=== PATIENT | female | born 1965 | race African-American/Black ===

== ENCOUNTER → 2016-03-01 | Outpatient (CLI) | payer BC, OTHER ==
[~2016-03-01] VITALS: Ht 157.5 cm; Wt 73.4 kg
[~2016-03-01] MED LIST: DEPO-PROVER150 MG/M1 IM; NEURONTIN 300300 M1 PO; UNICOMPLEX M TA1 TA1 PO
--- NOTE | ~2016-03-01 | HPC ---
[facility] [place] [place] [address] PAIN MANAGEMENT CONSULTATION Name: PATRICIA FRIEDMAN VERO Room #: REG DARIO Jelly#: [id number] Admission: 03/01/16 Attend Phys: Paul Yoo DO Discharge: Date of : 61 Report #: [id number] THIS REPORT FOR: //name// CC: Paul MONZON DC DATE OF SERVICE: 03/01/2016 REFERRING PHYSICIAN: Jaime Monzon DC CHIEF COMPLAINT: Neck pain, left upper extremity pain and paresthesias. HISTORY OF PRESENT ILLNESS: As you know, the patient is a very pleasant 50-year-old female referred to our service by her a chiropractor, Dr. Jaime Monzon, for evaluation for cervical radiculopathy. The patient has been undergoing treatment for chiropractic manipulation of the cervical spine, but unfortunately the patient's symptoms did not improve significantly. She was then sent for MRI of the cervical spine for concern of cervical radiculopathy affecting the C6-C7 dermatome. After the MRI was obtained, the patient was referred to our clinic to discuss treatment options. The patient indicates pain has been present for about 5-7 days. She states her pain is constant in nature, describes the pain as aching, throbbing, tender, numbness and tingling. She places current pain score at 8/10, daily average at 10/10. Current pain is leveled at 8-10/10. She states that moving, lying down for any length of time, using her left upper extremity exacerbate symptoms. She improves with rest, relaxation. She has been referred to our service for discussions of suspected cervical radiculopathy. PAST MEDICAL HISTORY: None. PAST SURGICAL HISTORY: None. SOCIAL HISTORY: The patient denies tobacco, alcohol or IV illicit drug use. 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 She is working, not receiving workmen's compensation nor is she trying to obtain disability benefits. She is unaccompanied at today's visit. REVIEW OF SYSTEMS: Positive only for neck pain, left upper extremity pain and paresthesias. All other review of systems negative per 12-point review of systems other than those listed in history of present illness. Pain impact score 20/70 indicating mild to moderate interference of daily activities secondary to pain. ALLERGIES: No known drug allergies. [address] [address] PAIN MANAGEMENT CONSULTATION Name: PATRICIA FRIEDMAN VERO Room #: REG DARIO Reaves#: [id number] Admission: 03/01/16 Attend Phys: Paul Yoo DO Discharge: Date of : 61 Report #: [id number] CURRENT MEDICATIONS: Multivitamin 1 tab per day and Depo-Provera every 3 months. IMAGING: MRI of cervical spine obtained on 03/01/2016 shows C2-C3, unremarkable. C3-C4, mild degenerative changes, posterior disk bulge indenting anterior thecal sac, mildly narrowing the canal, neural foramen are patent. C4-C5 posterior disk bulge intending at the anterior thecal sac, mild to moderate narrowing in the central canal. AP diameter is 8 mm, neural foramen are patent. C5-C6, moderate posterior disk bulge, facet arthropathy, indentation at the anterior thecal sac, moderate central canal stenosis, AP dimension of the central canal 7 mm, mild, narrowing of the neural foramen. C6-C7, diffuse asymmetric bulge protrusion measuring 3 mm in the left neural foramen, resulting in severe stenosis of the left neural foramen, mild to moderate central canal stenosis, right neural foraminal areas are patent. PHYSICAL EXAMINATION: VITAL SIGNS: Blood pressure 154/91, pulse 98, respiratory rate 16, unlabored. The patient is 100% on room air. Height 5 feet 2 inch tall, weight 161.8 pounds, BMI calculated 29.6. GENERAL: Well-developed, well-nourished, well-hydrated 50-year-old female appearing stated age, placing current pain score at around 8-10/10. HEENT: Normocephalic, atraumatic. Pupils equal, round, reactive to light. Extraocular muscles are intact. Sclerae nonicteric without injection. NEUROLOGIC: Cranial nerves 2-12 grossly intact. Speech fluent. The patient deemed an excellent historian. LUNGS: Clear. No wheeze, rhonchi or rales. CARDIOVASCULAR: Regular. No appreciable gallop or rub. ABDOMEN: Soft, nontender, nondistended, normal active bowel sounds. EXTREMITIES: Show no clubbing, no cyanosis, no edema. MUSCULOSKELETAL: Upper extremity strength appears equal and symmetrical 5/5. There is some giveaway strength noted with biceps flexion and triceps extension due to pain generation on the left when compared to the right. The patient does have decreased tactile sensation along the C7 dermatome left, normal right. Spurling's test positive left, negative right. Traction test is positive. Valsalva test is positive left, negative right. Cervical provocation testing including extension, rotation, lateral flexion to the left causes intensification of neck and upper trapezial pain. Muscle bulk and tone equal and symmetrical in upper extremities. Deep tendon reflexes 2+/4 biceps, brachioradialis and triceps. ASSESSMENT: 1. Cervical radiculopathy. 2. Displacement of cervical intravertebral disk with radiculopathy. 3. Cervical spondylosis with radiculopathy. [facility] [address] [place] [address] PAIN MANAGEMENT CONSULTATION Name: PATRICIA FRIEDMAN VERO Room #: REG DARIO Reaves#: [id number] Admission: 03/01/16 Attend Phys: Paul Yoo DO Discharge: Date of : 61 Report #: [id number] PLAN: 1. Based on today's physical exam, history the patient has provided, the description the patient uses in regards to pain as well as the distribution of the pain presenting today, the likely source of the patient's pain is a cervical radiculopathy. The findings on the cervical spine do correlate with the findings of physical exam. Specifically, the neural foraminal stenosis at C6-C7 correlating to a C7 dermatomal distribution problem. The patient and I discussed at length the MRI findings. We took 20 minutes of time to evaluate the MRI. We used mottling and recent reports to display any changes that the patient has. After the discussion, the patient fully understood her cervical radicular symptoms and the cause of her pain. We then discussed with the patient the options for treatment. The following was discussed. 2. We discussed with the patient treatment options would include physical therapy, traction of the cervical spine, possible continued use of mild myofascial pain release treatments and chiropractic manipulation. We discussed medication management with addition of a neuropathic pain medication and a consistent nonsteroidal anti-inflammatory. We discussed cervical epidural injections under fluoroscopic guidance to address cervical radicular symptoms and surgical options. After reviewing the risks and benefits of all the proposed treatment options, the patient chose to undergo a cervical epidural injection under fluoroscopic guidance. The patient was advised the risks and benefits of cervical epidural injection. These risks include but are not necessarily limited to bleeding, bruising, infection, worsening pain, no relief of pain, also risk of temporary or permanent muscle weakness, temporary or permanent nerve damage, possible paralysis, and posterior puncture headache. The patient states she understood and wished to proceed. 3. No medication changes were made at today's visit. The patient to continue current medical therapy as previously prescribed. 4. The patient to return to our clinic in approximately 1 month. At that time, review the efficacy of the cervical epidural injection provided today and discuss the possibility of utilizing the second in series of epidural injections assuming pain has not been resolved. 5. We wish to thank Dr. Jaime Monzon for the referral of this patient to our clinic. We will keep you apprised of her response to treatment as we address her cervical radicular symptoms. Again, we wish to thank you for the opportunity to participate in her care. PROCEDURE NOTE DESCRIPTION OF PROCEDURE: C7-T1 cervical epidural steroid injection under fluoroscopic guidance. This is the first procedure of the first series that the patient is undergoing. After obtaining written consent, the patient was taken back to the fluoroscopy suite and placed in a prone position with separate pill[place] [address] PAIN MANAGEMENT CONSULTATION Name: PATRICIA FRIEDMAN VERO Room #: REG DARIO Reaves#: [id number] Admission: 03/01/16 Attend Phys: Paul Yoo DO Discharge: Date of : 61 Report #: [id number] forehead to decrease cervical lordosis. The skin overlying the cervical area was prepped and draped in an aseptic fashion. The C7-T1 vertebral interspace was identified by AP fluoroscopy. The skin and subcutaneous tissue overlying the target site of injection was anesthetized using 3 mL of 1% lidocaine. A 20-gauge 3-1/2 inch Tuohy needle was advanced under fluoroscopic guidance toward the epidural space using a midline approach. The epidural space was identified using a loss of resistance to air technique. After negative aspiration for heme or cerebrospinal fluid, a total of 1 mL of Omnipaque was injected. A cervical epidurogram was confirmed using AP and oblique fluoroscopy. After negative aspiration for heme or cerebrospinal fluid, 5 mL of solution containing 2 mL 40 mg per mL 80 mg total triamcinolone and 3 mL lidocaine 1% was injected in increments. Contrast spread was noted from posterior epidural space. The needle was then retracted approximately senior living and the needle track was flushed with 1 mL of 1% lidocaine. There were no apparent new sensory deficits in the upper extremities present following the procedure. A sterile bandage was placed over the injection site. The heart rate, pulse oximetry and blood pressure were continuously monitored after the procedure. There were no apparent complications. The patient tolerated the procedure well and was carefully escorted in the recovery room in stable condition. After meeting discharge criteria, the patient was discharged home. <ELECTRONICALLY SIGNED> By: Paul Yoo DO 03/08/16 0737 [id number] Paul Yoo DO /nt
[2016-03-01 13:09] VITALS: BP 154/91
== END | disposition home or self-care (01) ==
LOC: PAIN 07:16
DX: M50.123 Cervical disc disorder at C6-C7 level with radiculopathy (principal); M47.22 Other spondylosis with radiculopathy, cervical region

== ENCOUNTER → 2016-03-09 | Outpatient (CLI) | payer BC, OTHER ==
[~2016-03-09] VITALS: Ht 157.5 cm; Wt 71.7 kg
--- NOTE | ~2016-03-09 | HPC ---
[facility] [place] [address] PAIN MANAGEMENT CONSULTATION Name: PATRICIA FRIEDMAN VERO Room #: REG DARIO Akash.#: [id number] Admission: 03/09/16 Attend Phys: Paul Yoo DO Discharge: Date of : 61 Report #: [id number] THIS REPORT FOR: //name// CC: Paul MONZON DC DATE OF SERVICE: 03/09/2016 REFERRING PHYSICIAN: Jaime Monzon DC CHIEF COMPLAINT: Neck pain, left upper extremity pain and paresthesias. HISTORY OF PRESENT ILLNESS: As you know, the patient is a very pleasant 50-year-old female referred to our service by her chiropractor, Dr. Jaime Monzon for evaluation of cervical radiculopathy. The patient underwent a cervical epidural injection under fluoroscopic guidance with near complete resolution of her neck pain. This was done on 03/01/2016. Unfortunately, the patient continues to experience left upper extremity paresthesias for which she returns today. Due to third libertarian payer restrictions, we cannot provide the next in the series of epidural injections until 30 days have elapsed from her initial injection, which would place as 04/01/2016. She returns today to discuss other options for treatment, placing current pain score at around 6/10, states her pain is throbbing, sharp, sore and aching in sensation, exacerbated with putting socks and lifting arms, improves with medications, rest, relaxation and the previous epidural injection. ALLERGIES: No known drug allergies. CURRENT MEDICATIONS: Multivitamin 1 tab per day and Depo-Provera every 3 months. SOCIAL HISTORY: The patient denies tobacco, alcohol, IV or illicit drug use. 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 PHYSICAL EXAMINATION: VITAL SIGNS: Blood pressure 129/81, pulse 86, respiratory rate 14 and unlabored, the patient is 99% on room air, height 5 feet 2 inches tall, weight 158 pounds, and BMI calculated 28.9. GENERAL: Well-developed, well-nourished, well-hydrated 50-year-old female, appearing stated age, placing pain score today at 6/10. HEENT: Normocephalic, atraumatic. Pupils are equal, round, and reactive to light. Extraocular muscles are intact. Sclerae are nonicteric without injection. [facility] [address] [place] [address] PAIN MANAGEMENT CONSULTATION Name: PATRICIA FRIEDMAN [facility] Room #: REG CLI [facility]#: [id number] Admission: 03/09/16 Attend Phys: Paul Yoo DO Discharge: Date of : 61 Report #: [id number] EXTREMITIES: Show no clubbing, no cyanosis, and no edema. MUSCULOSKELETAL: Upper extremity strength equal and symmetrical 5/5. Give way strength noted with biceps flexion, triceps extension on the left when compared to the right. Spurling's test positive left. There is decreased tactile sensation again along the C7 dermatome left, normal right. ASSESSMENT: 1. Cervical radiculopathy. 2. Cervical spinal stenosis with radiculopathy. 3. Cervical spondylosis with radiculopathy. 4. Displacement of cervical intervertebral disk at C4-C5. 5. Displacement of cervical intervertebral disk at C5-C6. 6. Displacement of cervical vertebral disk at C6-C7. PLAN: 1. The patient has returned today in followup visit having noted good analgesic benefit affecting the neck and left upper shoulder area. Unfortunately, the patient remains experiencing paresthesias in the left upper extremity for which she returns today. The epidural injection did provide about 50-60% improvement in overall pain. Pain is now rated at a level of 6/10, mainly involving the left forearm. She states that symptoms exacerbated in the evening hours when trying to lie down. She is requesting possible changes in medication therapy to address this problem. The patient is aware that third libertarian payer restrictions require that 30 days elapse before an epidural injection could be performed again, this would be at earliest 04/01/2016. We will make the following changes in medication today. 2. The patient will be started on Neurontin 300 mg dose 1 tab p.o. at bedtime for 3 nights, then 2 tabs p.o. at bedtime for 3 nights, then 3 tabs p.o. at bedtime for 3 nights, then 4 tabs p.o. at bedtime. The patient was given #20 tablets, no refills. The patient was advised to watch for side effects such as somnolence, decreased mental acuity, disorientation and confusion as well as mental slowing. She will contact our clinic if she suffers any of these side effects for further discussion on treatment. The patient was given this prescription and advised how to take the medication appropriately. This information was given to the patient in verbal and written form today. 3. The patient will return to our clinic on 04/01/2016, for a possible second in series of cervical epidural injections to address any residual pain unalleviated by medications and the initial epidural injection. <ELECTRONICALLY SIGNED> By: Paul Yoo DO 03/15/16 [id number] [id number] Paul Yoo, /nt
[2016-03-09 08:23] VITALS: BP 129/81
== END ==
LOC: PAIN 07:04
DX: M50.123 Cervical disc disorder at C6-C7 level with radiculopathy (principal); R20.9 Unspecified disturbances of skin sensation; M48.02 Spinal stenosis, cervical region; M47.22 Other spondylosis with radiculopathy, cervical region